=== PATIENT | female | born 1990 | race Caucasian/White ===

== ENCOUNTER 2016-09-30 15:09 | Outpatient (CLI) | payer BC ==
--- NOTE | 2016-09-30 16:31 | DIAGNOSTIC IMAGING REPORT ---
PROCEDURE: US VENOUS - RIGHT EXT INDICATION: RT LEG EDEMA TECHNIQUE: Duplex sonography of the deep venous system in the right lower extremity was performed. Compression and augmentation techniques were used. COMPARISON: None. FINDINGS: Each interrogated segment of deep vein from the common femoral vein into the calf veins demonstrates normal compressibility, augmentation and/or color Doppler flow without filling defect. No evidence of significant soft-tissue edema, soft-tissue mass or cyst. IMPRESSION: 1. No deep venous thrombosis in the right lower extremity.
== END 2016-09-30 23:00 ==
LOC: US SRH 15:09
DX: R60.9 Edema, unspecified (principal)